=== PATIENT | female | born 1970 | race Two or more races ===

== ENCOUNTER 2016-09-29 09:56 | Emergency (ER) | payer MEDICAID ==
[~2016-09-29 09:56] MED LIST: ATORVASTATIN CA80 M1 PO; FEOSOL325 M1 PO; GLIPIZIDE-METF1 EAC2 PO; GLYBURIDE5 M1 PO; JANUVIA100 M1 PO; LEVORA-28 TABL1 EACH PO; METFORMIN HCL1000 M2 PO; NORCO 5-325 TA1 EACH PO; PERCOCET 5-3251 EACH PO; STOOL SOFTENER100 M3 PO; ZOFRAN ODT4 MG PO; [UNRECOGNIZED DRUG - REMARK]
[2016-09-29] MEDS ORDERED: LANTUS SOL100 UNIT/1 SC (10:16)
[2016-09-29] MEDS ORDERED: PRINIVIL10 M1 PO (10:17)
[2016-09-29] MEDS ORDERED: CYMBALTA30 M1 PO (10:19)
[2016-09-29] MEDS ORDERED: MELATONIN3 M4 PO (10:51)
[2016-09-29 11:20] LABS: BASO % 0.2 % (0-2); EOS % 0.2 % (0-7); HCT-HEMATOCRIT 25.7 % (34.0-49.0); HGB-HEMOGLOBIN 7.1 gm/dl (12.0-15.5); IMMATURE GRANULOCYTES ABSOLUTE 0.01 tho/cmm (0-0.03); IMMATURE GRANULOCYTES PERCENT 0.2 % (0-0.3); LYMPH % 21.1 % (20-45); MCV (MEAN CELL VOLUME) 62.1 fl (82.0-96.0); MONO % 3.9 % (0-12); MONOCYTE ABSOLUTE COUNT 0.2 tho/cmm (0.0-1.2); NEUTROPHIL ABSOLUTE COUNT 3.4 tho/cmm (1.6-8.0); NEUTROPHIL-AUTOMATED 3.4 tho/cmm (1.6-8.0); NEUTROPHILS % 74.4 % (40-80); PLATELET COUNT 353 tho/cmm (150-450); RED BLOOD COUNT 4.14 mil/cmm (4.00-5.20); RED CELL DISTRIBUTION WIDTH 22.7 % (12.4-16.4); WHITE BLOOD COUNT 4.6 tho/cmm (4.0-10.0)
[2016-09-29 11:21] LABS: MCH (MEAN CORPUSCULAR HGB) 17.1 pg (28.0-32.0); MCHC MEAN CORPUSCULAR HGB CONC 27.6 % (32.0-36.0)
[2016-09-29 11:31] LABS: ALBUMIN 3.6 g/dl (3.5-5.0); ALKALINE PHOSPHATASE 46 U/L (33-138); ALT/SGPT 32 U/L (12-78); ANION GAP 13 mmol/L (0-20); AST/SGOT 15 U/L (10-40); BILIRUBIN,TOTAL 0.4 mg/dl (0-1.5); BLOOD UREA NITROGEN 8 mg/dl (6-24); CALCIUM 8.4 mg/dl (8.5-10.5); CARBON DIOXIDE-VENOUS 25 mmol/L (22-32); CHLORIDE 102 mmol/l (96-110); CREATININE 0.49 mg/dl (0.50-1.10); GLUCOSE 269 mg/dL (70-110); LIPASE 100 U/L (73-393); POTASSIUM 3.7 mmol/L (3.7-5.1); SODIUM 136 mmol/L (135-145); eGFR VALUE FOR BLACK >90 mL/Min
[2016-09-29 11:35] LABS: PREGNANCY-SERUM NEGATIVE (NEGATIVE)
[2016-09-29] MEDS ORDERED: NORCO 5-325 TA1 EACH PO (13:32)
[2016-09-29] MEDS ORDERED: ZOFRAN4 M2 PO (13:32)
== END 2016-09-29 14:03 ==
LOC: EDMED 09:56
PROVIDERS: Physician Assistant
DX: D64.9 Anemia, unspecified (principal); R10.11 Right upper quadrant pain; R10.12 Left upper quadrant pain; R11.2 Nausea with vomiting, unspecified; E11.9 Type 2 diabetes mellitus without complications; I10 Essential (primary) hypertension; Z87.442 Personal history of urinary calculi; Z90.89 Acquired absence of other organs; Z79.4 Long term (current) use of insulin; Z79.899 Other long term (current) drug therapy
CPT/HCPCS: J1170; J2405; J7030; Q9967